=== PATIENT | female | born 1990 | race American Indian/Alaskan Native ===

== ENCOUNTER 2016-08-12 01:54 | Emergency (ER) | payer OTHER ==
[2016-08-12 02:00] VITALS: RESP 16; TEMP 98.6; BMI 34.0
[2016-08-12] MEDS ORDERED: Sodium Chloride 0.9% 1,000 ML IV STA (02:26)
--- NOTE | 2016-08-12 02:28 | ED PDOC ---
Arrival/HPI - General Chief Complaint: Abdominal Pain Time Seen by Provider: 08/12/16 02:16 Historian: Patient - History of Present Illness Narrative History of Present Illness (Text): 08/12/16 02:24 Mary Jo Baeza is a 26 year old female who presents to the ED complaining of lower abdominal pain. Patient states she has been experiencing lower abdominal pain radiating to her lower back and rectum with 1 episode of vomiting since yesterday. Patient states she has been experiencing difficulty moving her bowels secondary to rectal pain. Patient denies any recent sexual intercourse, rectal bleeding, fever, chills, diarrhea, dysuria, hematuria, urine output changes, neck pain, headache, dizziness, or any other complaints. Time/Duration: Other (yesterday) Symptom Onset: Gradual Symptom Course: Unchanged Activities at Onset: Rest, Light Context: Home Past Medical History - Provider Review Nursing Documentation Reviewed: Yes - Past History Past History: No Previous - Tetanus Immunization Tetanus Immunization: Up to Date (less than 5 yrs ago) - Reproductive Menopause: No - Cardiac Hx Cardiac Disorders: No - Pulmonary Hx Respiratory Disorders: No - Neurological Hx Neurological Disorder: Yes Hx Migraine: Yes - HEENT Hx HEENT Disorder: No - Renal Hx Renal Disorder: No - Endocrine/Metabolic Hx Endocrine Disorders: No - Hematological/Oncological Hx Blood Disorders: No - Integumentary Hx Dermatological Disorder: No - Musculoskeletal/Rheumatological Hx Musculoskeletal Disorders: No - Gastrointestinal Hx Gastrointestinal Disorders: No - Genitourinary/Gynecological Hx Genitourinary Disorders: No - Psychiatric Hx Psychophysiologic Disorder: No Hx Substance Use: Yes - Past Surgical History Past Surgical History: Non-Contributing - Suicidal Assessment Feels Threatened In Home Enviroment: No Family/Social History - Physician Review Nursing Documentation Reviewed: Yes Family/Social History: No Known Family HX Smoking Status: Never Smoked Hx Alcohol Use: Yes Frequency of alcohol use: Socially Hx Substance Use: Yes Substance used: marijuana Hx Substance Use Treatment: No Allergies/Home Meds Allergies/Adverse Reactions: Allergies iv dye Adverse Reaction (Uncoded 02/06/16 18:22) NAUSEA vomiting Review of Systems - Physician Review All systems were reviewed & negative as marked: Yes - Review of Systems Constitutional: Normal. absent: Fevers Eyes: Normal ENT: Normal Respiratory: Normal. absent: SOB, Cough Cardiovascular: Normal. absent: Chest Pain Gastrointestinal: Abdominal Pain, Other (+rectal pain) Genitourinary Female: Normal. absent: Dysuria, Frequency, Hematuria, Urine Output Changes Musculoskeletal: absent: Neck Pain Skin: Normal. absent: Rash Neurological: Normal. absent: Headache, Dizziness Endocrine: Normal Hemo/Lymphatic: Normal Psychiatric: Normal Physical Exam Vital Signs Reviewed: Yes Vital Signs Temp Pulse Resp BP Pulse Ox 08/12/16 05:08 74 16 104/46 L 99 08/12/16 03:24 64 16 120/54 L 98 08/12/16 01:59 98.6 F 82 16 115/60 98 Temperature: Afebrile Blood Pressure: Normal Pulse: Regular Respiratory Rate: Normal Appearance: Positive for: Well-Appearing, Non-Toxic, Comfortable Pain Distress: None Mental Status: Positive for: Alert and Oriented X 3 - Systems Exam Head: Present: Atraumatic, Normocephalic Pupils: Present: PERRL Extroacular Muscles: Present: EOMI Conjunctiva: Present: Normal Mouth: Present: Moist Mucous Membranes Neck: Present: Normal Range of Motion Respiratory/Chest: Present: Clear to Auscultation, Good Air Exchange. No: Respiratory Distress, Accessory Muscle Use Cardiovascular: Present: Regular Rate and Rhythm, Normal S1, S2. No: Murmurs Abdomen: Present: Tenderness (RLQ/suprapubic tenderness), Normal Bowel Sounds. No: Distention, Peritoneal Signs Rectal: Present: Other (Scribe present as senior devops engineer). No: Gross Blood, Hemorrhoids, Fissures, Nodule/Mass/Lesions Back: Present: Normal Inspection Upper Extremity: Present: Normal Inspection. No: Cyanosis, Edema Lower Extremity: Present: Normal Inspection. No: Edema Neurological: Present: GCS=15, CN II-XII Intact, Speech Normal Skin: Present: Warm, Dry, Normal Color. No: Rashes Psychiatric: Present: Alert, Oriented x 3, Normal Insight, Normal Concentration Medical Decision Making ED Course and Treatment: 08/12/16 02:24 Impression: 26 year old female complaining of lower abdominal pain radiating to lower back and rectum since yesterday. Plan: -- CT Abdomen and Pelvis w/o contrast -- Labs, lipase -- Urinalysis -- IV fluids -- Zofran -- Toradol -- Reassess and disposition Progress Notes: 08/12/16 04:04 Reviewed radiology, CT Abdomen and Pelvis shows: 1. There is nonspecific prominence of the mesenteric lymph nodes. Consider adenitis. 2. There is no appendicitis. 3. There is slight thickening of the wall of the distal transverse colon. No adjacent stranding. This may be reflection of incomplete distention. Correlate clinically to exclude colitis. 08/12/16 04:55 On re-evaluation, the patient feels better and is in no acute distress. I have discussed the results and plan with the patient, who expresses understanding. Patient in agreement with plan to discharged home. Patient is stable for discharge. Patient was instructed to follow up with physician/clinic in 1-2 days or return if symptoms worsen or new concerning symptoms arise. Re-evaluation Time: 04:56 Reassessment Condition: Re-examined, Improved - Lab Interpretations Lab Results: 08/12/16 02:55 08/12/16 02:55 Lab Results 08/12/16 02:55: WBC 11.0, RBC 4.05, Hgb 10.9 L, Hct 34.1 L, MCV 84.2, MCH 26.9, MCHC 32.0, RDW 14.4, Plt Count 196, MPV 11.9 H, Gran % 70.8 H, Lymph % (Auto) 20.2 L, [place] % (Auto) 7.2 H, Eos % (Auto) 1.4 L, Baso % (Auto) 0.4, Gran # 7.83 H, Lymph # 2.2, [place] # 0.8 H, Eos # 0.2, Baso # 0.04, PT 11.7, INR 1.08, APTT 26.8, Sodium 139, Potassium 3.8, Chloride 103, Carbon Dioxide 26, Anion Gap 14, BUN 16, Creatinine 0.8, Est GFR ( Amer) > 60, Est GFR (Non-Af Amer) > 60 , Random Glucose 92, Calcium 9.3, Total Bilirubin 0.8, AST 23, ALT 17, Alkaline Phosphatase 49, Total Protein 7.7, Albumin 4.2, Globulin 3.5, Albumin/Globulin Ratio 1.2, Lipase 47 08/12/16 02:35: Urine Color Yellow, Urine Appearance Clear, Urine pH 7.0, Ur Specific [place] 1.020, Urine Protein Trace H, Urine Glucose (UA) Negative, Urine Ketones Negative, Urine Blood Negative, Urine Nitrate Negative, Urine Bilirubin Negative, Urine Urobilinogen 2.0 H, Ur Leukocyte Esterase Negative, Urine RBC 0 - 2, Urine WBC 1 - 3, Ur Epithelial Cells 1 - 3, Urine Bacteria Occ , Urine HCG, Qual Negative I have reviewed the lab results: Yes - RAD Interpretation Narrative RAD Interpretations (Text): CT Abdomen and Pelvis shows: Lower thorax: No acute findings. ABDOMEN: Liver: No acute findings. Gallbladder and bile ducts: No acute findings. No calcified stones. No ductal dilation. Pancreas: No acute findings. No ductal dilation. Spleen: No acute findings. No splenomegaly. Adrenals: No acute findings. No mass. Kidneys and ureters: No acute findings. No obstructing stones. No hydronephrosis. Stomach and bowel: There is slight thickening of the wall of the distal transverse colon. No adjacent stranding. Appendix: No findings to suggest acute appendicitis. PELVIS: Bladder: No acute findings. No stones. Reproductive: No acute findings. ABDOMEN and PELVIS: Intraperitoneal space: No acute findings. No free air. No significant fluid collection. Bones/joints: No acute fracture. No dislocation. Soft tissues: No acute findings. Vasculature: No acute findings. No abdominal aortic aneurysm. Lymph nodes: There is nonspecific prominence of the mesenteric lymph nodes. IMPRESSION: 1. There is nonspecific prominence of the mesenteric lymph nodes. Consider adenitis. 2. There is no appendicitis. 3. There is slight thickening of the wall of the distal transverse colon. No adjacent stranding. This may be reflection of incomplete distention. Correlate clinically to exclude colitis. Radiology Orders: 08/12/16 02:26 ABD & PELVIS W/O PO OR IV CONT [CT] Stat Loss Prevention Analyst: Radiologist - Medication Orders Current Medication Orders: Discontinued Medications Sodium Chloride (Sodium Chloride 0.9%) 1,000 mls @ 100 mls/hr IV .Q10H STA Stop: 08/12/16 12:25 Last Admin: 08/12/16 02:56 Dose: 100 MLS/HR eMAR Start Stop Document 08/12/16 02:56 [email or web address] (Rec: 08/12/16 02:56 [email or web address] [facility] [id number] Intravenous Solution Start Date 08/12/16 Start Time 02:56 End Date 08/12/16 Ketorolac Tromethamine (Toradol) 30 mg IVP STAT STA Stop: 08/12/16 02:27 Last Admin: 08/12/16 03:05 Dose: 30 MG IVP Administration Document 08/12/16 03:05 [email or web address] (Rec: 08/12/16 03:05 [email or web address] [id number] Charges for Administration # of IVP Administrations 1 Ondansetron HCl (Zofran Inj) 4 mg IVP STAT STA Stop: 08/12/16 02:27 Last Admin: 08/12/16 03:05 Dose: 4 MG IVP Administration Document 08/12/16 03:05 [email or web address] (Rec: 08/12/16 03:06 [email or web address] [facility] [id number] Charges for Administration # of IVP Administrations 1 - Scribe Statement The provider has reviewed the documentation as recorded by the Onel Anne Provider Attestation: All medical record entries made by the Onel were at my direction and personally dictated by me. I have reviewed the chart and agree that the record accurately reflects my personal performance of the history, physical exam, medical decision making, and the department course for this patient. I have also personally directed, reviewed, and agree with the discharge instructions and disposition. Disposition/Present on Arrival - Present on Arrival Any Indicators Present on Arrival: No History of DVT/PE: No History of Uncontrolled Diabetes: No Urinary Catheter: No History of Decub. Ulcer: No History Surgical Site Infection Following: None - Disposition Have Diagnosis and Disposition been Completed?: Yes Diagnosis: Colitis Disposition: HOME/ ROUTINE Disposition Time: 04:56 Discharge Instructions (ExitCare): Colitis (ED) Prescriptions: Metronidazole [Flagyl] 500 mg PO TID #15 tab
[2016-08-12 02:59] LABS: URINE BILIRUBIN NEGATIVE (NEGATIVE); URINE BLOOD NEGATIVE (NEGATIVE); URINE GLUCOSE (UA) NEGATIVE (NEGATIVE); URINE KETONE NEGATIVE (NEGATIVE); URINE LEUKOCYTE ESTERASE NEGATIVE Leu/uL (NEGATIVE); URINE PROTEIN TRACE mg/dL (<30 mg/dL)
[2016-08-12 03:01] LABS: ADD MANUAL DIFF? NO
[2016-08-12 03:07] LABS: URINE APPEARANCE CLEAR (CLEAR); URINE COLOR YELLOW (YELLOW)
[2016-08-12 03:12] LABS: ALB/GLOB RATIO 1.2 (1.1-1.8); ALKALINE PHOSPHATASE 49 U/L (38-133); ALT/SGPT 17 U/L (7-56); AST/SGOT 23 U/L (15-39); BILIRUBIN,TOTAL 0.8 mg/dL (0.2-1.3); BLOOD UREA NITROGEN 16 mg/dL (7-21); CALCIUM 9.3 mg/dL (8.4-10.5); CARBON DIOXIDE 26 mmol/L (21-33); CHLORIDE 103 mmol/L (98-107); GFR AFRICAN-AMERICAN > 60; GLUCOSE,RANDOM 92 mg/dL (70-110); LIPASE 47 U/L (23-300); POTASSIUM 3.8 mmol/L (3.6-5.0); SODIUM 139 mmol/L (132-148); TOTAL PROTEIN 7.7 g/dL (5.8-8.3)
[2016-08-12 03:17] LABS: URINE BACTERIA OCC (NEG); URINE RBC 0 - 2 /hpf (0-2)
[2016-08-12 03:23] LABS: INR 1.08 (0.93-1.08); PARTIAL THROMBOPLASTIN TIME 26.8 Seconds (23.7-30.8)
[2016-08-12 03:33] LABS: BASO % 0.4 % (0.0-3.0); EOS % 1.4 % (1.5-5.0); GRAN # 7.83 (1.4-6.5); GRAN % 70.8 % (50.0-68.0); HEMATOCRIT 34.1 % (36.0-48.0); LYMPH % 20.2 % (22.0-35.0); MEAN CELL VOLUME 84.2 fL (80.0-105.0); MEAN CORPUSCULAR HEMOGLOBIN 26.9 pg (25.0-35.0); MEAN PLATELET VOLUME 11.9 fl (7.0-11.0); MONO % 7.2 % (1.0-6.0); PLATELET COUNT 196 10^3/uL (120.0-450.0); RED CELL DISTRIBUTION WIDTH 14.4 % (11.5-14.5)
[2016-08-12 03:34] LABS: BASO # 0.04 K/mm3 (0.0-2.0); EOS # 0.2 (0.0-0.7); LYMPH # 2.2 (1.2-3.4); MONO # 0.8 (0.1-0.6)
[2016-08-12 05:09] VITALS: BP 104/46; PULSE 74; O2SAT 99
--- NOTE | 2016-08-12 10:42 | CT ---
PROCEDURE: CT Abdomen and Pelvis without Oral or IV contrast. HISTORY: abd pain COMPARISON: None available TECHNIQUE: Contiguous axial images of the abdomen and pelvis. No oral or IV contrast administered. Coronal and Sagittal reformats generated and reviewed. Radiation dose: Total exam DLP = 695.99 mGy-cm. FINDINGS: There is limited evaluation of the solid organs without the administration of IV contrast. LOWER THORAX: No visible consolidation, pleural effusion, or pneumothorax. LIVER: Unremarkable unenhanced appearance. GALLBLADDER AND BILE DUCTS: Contracted gallbladder. Otherwise unremarkable unenhanced appearance. PANCREAS: Unremarkable unenhanced appearance. SPLEEN: Unremarkable unenhanced appearance. ADRENALS: Unremarkable unenhanced appearance. KIDNEYS AND URETERS: No hydronephrosis or obstructing renal calculus. BLADDER: Under distended urinary bladder appears otherwise unremarkable. REPRODUCTIVE: Uterus is present. APPENDIX: No secondary signs of acute appendicitis. BOWEL: The stomach is nondistended. Lack of oral contrast limits evaluation for bowel pathology. The bowel loops appear within normal limits of caliber without evidence of intestinal obstruction. Minimal thickening of the distal transverse colon. No associated inflammatory changes appreciated. PERITONEUM: No significant free fluid. No definite free air. LYMPH NODES: Prominent mesenteric lymph nodes, nonspecific.Sub cm retroperitoneal lymph nodes. VASCULATURE: No aortic aneurysm. BONES: No acute osseous abnormality is detected. OTHER FINDINGS: None. IMPRESSION: Nonspecific prominent mesenteric lymph nodes. Mesenteric adenitis is not excluded. Correlate clinically. Nonspecific mild thickening of the distal transverse colon without adjacent inflammatory changes. This may be the result of incomplete distention. Correlate clinically to exclude possibility of colitis. Preliminary impression was provided by virtual radiologic.
== END 2016-08-12 05:08 | disposition home or self-care (01) ==
LOC: ED 01:54
DX: K52.9 Noninfective gastroenteritis and colitis, unspecified (principal)
CPT/HCPCS: 74176; 80053; 81001; 83690; 84703; 85025; 85610; 85730; 96374; 96375; 99284; J1885; J2405; J7040